=== PATIENT | male | born 1950 | race Two or more races ===

== ENCOUNTER 2018-02-15 11:00 | Inpatient (IN) | payer OTHER ==
[~2018-02-15] VITALS: Ht 170.2 cm; Wt 90.7 kg
[2018-03-03] MEDS ORDERED: DOCUSATE SODIU100 MG PO (07:58)
[2018-03-03] MEDS ORDERED: CLONAZEPAM1 MG PO (07:59)
[2018-03-03] MEDS ORDERED: PERCOCET 5-3251 EACH PO (07:59)
== END 2018-03-03 14:22 | disposition home or self-care (01) | DRG 454 ==
LOC: O/R 03-02 04:45 → RECOVERY 03-02 10:15 → PED 03-03 03:43
PROVIDERS: Orthopaedic Surgery Orthopaedic Surgery of the Spine
PROC: 0RG2071 Fusion of 2 or more Cervical Vertebral Joints with Autologous Tissue Substitute, Posterior Approach, Posterior Column, Open Approach (ICD-10-PCS; 2018-03-02)
PROC: 0RT30ZZ Resection of Cervical Vertebral Disc, Open Approach (ICD-10-PCS; 2018-03-02)
PROC: 07DS3ZZ Extraction of Vertebral Bone Marrow, Percutaneous Approach (ICD-10-PCS; 2018-03-02)
PROC: 0RG20A0 Fusion of 2 or more Cervical Vertebral Joints with Interbody Fusion Device, Anterior Approach, Anterior Column, Open Approach (ICD-10-PCS; principal; 2018-03-02 10:15)
DX: M50.01 Cervical disc disorder with myelopathy, high cervical region (principal); M47.12 Other spondylosis with myelopathy, cervical region

== ENCOUNTER 2018-10-28 12:56 | Day surgery (SDC) | payer OTHER ==
[~2018-10-28 12:56] MED LIST: CANABIS PO; CLONAZEPAM1 MG PO; DOCUSATE SODIU100 MG PO; PERCOCET 5-3251 EACH PO
== END 2018-10-28 23:00 | disposition home or self-care (01) ==
LOC: CIR.AMB 12:56
DX: M75.122 Complete rotator cuff tear or rupture of left shoulder, not specified as traumatic (principal); M13.812 Other specified arthritis, left shoulder